=== PATIENT | female | born 1965 | race Caucasian/White ===

== ENCOUNTER 2022-08-13 00:50 | Emergency (ER) | payer SELFPAY ==
[2022-08-13] MEDS ORDERED: Cephalexin 250 MG CAP ONE (01:26)
[2022-08-13] MEDS ORDERED: Boostrix 0.5 ML (Tdap) VIAL (>/=7 yrs of age) ONE (01:26)
== END 2022-08-13 02:22 | disposition home or self-care (01) ==
LOC: CSHERS 00:50
DX: S61.211D Laceration without foreign body of left index finger without damage to nail, subsequent encounter (principal); I10 Essential (primary) hypertension; W26.0XXA Contact with knife, initial encounter; Z23 Encounter for immunization
CPT/HCPCS: 90471; 90715